=== PATIENT | female | born 1975 | race Caucasian/White ===

== ENCOUNTER 2021-06-02 23:56 | Emergency (ER) | payer MEDICAID ==
[~2021-06-02] VITALS: Ht 165.1 cm; Wt 89.3 kg
[~2021-06-02 23:56] MED LIST: DYN500C PO; HYDR-4383 PO
--- NOTE | 2021-06-03 00:19 | NUR ---
patient step up to a trailer when her georges hit tje metal on the stairs, her leg is now red swollen warm to touch , that started 3 days ago. , denies taking any medication related to injury
[2021-06-03] MEDS ORDERED: clindamycin 150mg capsule PO ONE (00:30)
[2021-06-03] MEDS ORDERED: acetaminophen 325mg tablet PO ONE (00:30)
[2021-06-03] MEDS ORDERED: ondansetron 4mg rapidly disintigrating tab PO ONE (00:30)
[2021-06-03] MEDS ORDERED: ibuprofen tablet 400 MG TABLET PO ONE (00:30)
[2021-06-03] MEDS ORDERED: CLIN150C2 PO (00:40)
[2021-06-03 00:49] VITALS: BP 135/84
== END 2021-06-03 00:51 | disposition home or self-care (01) ==
LOC: ER 06-03 00:01
DX: L02.415 Cutaneous abscess of right lower limb (principal); Z79.899 Other long term (current) drug therapy
CPT/HCPCS: 10060; 99284

== ENCOUNTER 2021-12-14 11:09 | Emergency (ER) | payer MEDICAID ==
[~2021-12-14] VITALS: Ht 165.1 cm; Wt 86.0 kg
[2021-12-14] MEDS ORDERED: acetaminophen 325mg tablet PO ONE (11:30)
[2021-12-14 12:08] LABS: BASOPHILS % (AUTO) 0.4 % (0-1); EOSINOPHILS # (AUTO) 0.1 X10'3 (0-0.9); EOSINOPHILS % (AUTO) 0.8 % (0-6); HEMATOCRIT 41.2 % (35.0-45.0); LYMPHOCYTES # (AUTO) 2.2 X10'3 (1.1-4.8); LYMPHOCYTES % (AUTO) 24.3 % (21-51); MEAN CORPUSCULAR HEMOGLOBIN 30.4 PG (27.0-31.0); MEAN CORPUSCULAR VOLUME 89.5 FL (78-98); MONOCYTES # (AUTO) 0.6 X10'3 (0-0.9); MONOCYTES % (AUTO) 6.3 % (2-12); NEUTROPHILS # (AUTO) 6.1 X10'3 (1.8-7.7); NEUTROPHILS % (AUTO) 68.2 % (42-75); PLATELET COUNT 314 X10'3 (140-440); RED CELL DISTRIBUTION WIDTH 14.2 % (11.5-14.5); WHITE BLOOD COUNT 8.9 X10'3 (4.5-11.0)
[2021-12-14 12:25] LABS: ALANINE AMINOTRANSFERASE 35 U/L (12-78); ALBUMIN 3.3 G/DL (3.4-5.0); ALBUMIN/GLOBULIN RATIO 0.7 (1.1-1.5); ALKALINE PHOSPHATASE 125 IU/L (46-116); ANION GAP 7 (8-16); ASPARTATE AMINO TRANSFERASE 21 U/L (10-37); BILIRUBIN,TOTAL 0.3 MG/DL (0.1-1.0); BLOOD UREA NITROGEN 13 MG/DL (7-18); CALCIUM 9.5 MG/DL (8.5-10.1); CHLORIDE 103 MMOL/L (99-107); GLUCOSE 117 MG/DL (70-104); POTASSIUM 3.9 MMOL/L (3.5-5.1); SODIUM 138 MMOL/L (135-145); TOTAL CARBON DIOXIDE 27.8 MMOL/L (24-32); TOTAL PROTEIN 7.8 G/DL (6.4-8.2); eGFR 60 ML/MIN
[2021-12-14] MEDS ORDERED: piperacillin/tazo 4.5gm/100ml 100 ML IV ONE (15:45)
[2021-12-14] MEDS ORDERED: morphine 4 MG/ML inj SYRINge IV ONE (15:55)
[2021-12-14] MEDS ORDERED: ondansetron/PF 4mg/2ml inj IV ONE (15:55)
[2021-12-14] MEDS ORDERED: piperacillin/tazo 3.375gm/50ml 50 ML IV ONE (16:35)
[2021-12-14] MEDS ORDERED: AMOX-117 PO (17:08)
[2021-12-14 17:53] VITALS: BP 108/64
== END 2021-12-14 17:59 | disposition home or self-care (01) ==
LOC: ER 11:09
DX: L03.115 Cellulitis of right lower limb (principal); R50.9 Fever, unspecified; R52 Pain, unspecified
CPT/HCPCS: 36415; 80053; 83605; 84145; 85025; 87040; 96365; 96375; 99284; J2270; J2405; J2543